=== PATIENT | male | born 1985 | race Caucasian/White ===

== ENCOUNTER 2020-05-10 13:02 | Emergency (ER) | payer OTHER ==
[2020-05-10] MEDS ORDERED: Cyclobenzaprine 10 MG TAB ONE (13:49)
[2020-05-10] MEDS ORDERED: Acetaminophen/Codeine 30-300mg Tablet ONE (13:49)
[2020-05-10] MEDS ORDERED: Ketorolac Tromethamine 60 MG/2 ML VIAL ONE (13:49)
== END 2020-05-10 14:25 | disposition home or self-care (01) ==
LOC: NAV ERS 13:02
DX: S39.012A Strain of muscle, fascia and tendon of lower back, initial encounter (principal); S29.012A Strain of muscle and tendon of back wall of thorax, initial encounter; F17.210 Nicotine dependence, cigarettes, uncomplicated
CPT/HCPCS: 96372; 99283; J1885